=== PATIENT | female | born 2000 | race American Indian/Alaskan Native ===

== ENCOUNTER 2021-09-15 18:41 | Emergency (ER) | payer MEDICAID ==
--- NOTE | 2021-09-15 21:16 | Emergency Department Report ---
ED Fall HPI - General Chief Complaint: Back Pain/Injury Stated Complaint: BACK PAIN Source: patient Mode of arrival: Ambulatory - History of Present Illness Initial Comments: Patient is a 21-year-old -Kittitian female with no past medical history who presents to the ED with complaint of acute onset persistent severe low back pain after she is slipped on a wet ground and fell down on a concrete ground 5 days ago. Patient states the pain has been persistent and especially worse with ambulation or when she gets up in the morning. Patient states that the pain is mainly on the left lateral lumbar sacral area. Patient denies loss of consciousness, dizziness, syncope, neck pain, headache, dizziness, abdominal pain, numbness and tingling or weakness of lower extremities bilaterally. MD Complaint: fall, other (Lower back pain) -: Sudden, days(s) (5) Fall From: standing, other (slipped and fell down on a wet ground) When Fall Occurred: # days [employer] (5) Fall Witnessed: yes, by living facility s Place Fall Occurred: work Loss of Consciousness: none Prolonged Down Time?: no Symptoms Prior to Fall: none Location: back (lower), other (lower back pain) Severity: severe Severity scale (0 -10): 7 Quality: sharp, aching Context: tripped/slipped Associated Symptoms: denies. denies: headache, neck pain, numbness, weakness, chest paint, abdominal pain, hematuria, unable to walk, vertigo, confusion - Related Data Previous Rx's Medication Instructions Recorded Last Taken Type Baclofen 20 mg PO Q12H PRN #20 tablet 09/15/21 Unknown Rx Naproxen 500 mg PO Q12H PRN #30 tablet 09/15/21 Unknown Rx ED Review of Systems ROS: Stated complaint: BACK PAIN Other details as noted in HPI Constitutional: denies: chills, fever Eyes: denies: eye pain, eye discharge, vision change ENT: denies: ear pain, throat pain Respiratory: denies: cough, shortness of breath, wheezing Cardiovascular: denies: chest pain, palpitations Endocrine: no symptoms reported Gastrointestinal: denies: abdominal pain, nausea, diarrhea Genitourinary: denies: urgency, dysuria, discharge Musculoskeletal: back pain (back). denies: joint swelling, arthralgia Skin: denies: rash, lesions Neurological: denies: headache, weakness, paresthesias Psychiatric: denies: anxiety, depression Hematological/Lymphatic: denies: easy bleeding, easy bruising ED Past Medical Hx - Past Medical History Previous Medical History?: No - Surgical History Past Surgical History?: No - Medications Home Medications: Home Medications Medication Instructions Recorded Confirmed Last Taken Type Baclofen 20 mg PO Q12H PRN #20 tablet 09/15/21 Unknown Rx Naproxen 500 mg PO Q12H PRN #30 tablet 09/15/21 Unknown Rx ED Physical Exam - General Limitations: No Limitations General appearance: alert, in no apparent distress - Head Head exam: Present: atraumatic, normocephalic, normal inspection - Eye Eye exam: Present: normal appearance, PERRL Pupils: Present: normal accommodation - ENT ENT exam: Present: normal exam, normal orophraynx, mucous membranes moist, TM's normal bilaterally, normal external ear exam - Neck Neck exam: Present: normal inspection, full ROM - Respiratory Respiratory exam: Present: normal lung sounds bilaterally. Absent: respiratory distress, wheezes, rales, rhonchi, chest wall tenderness, accessory muscle use, prolonged expiratory - Cardiovascular Cardiovascular Exam: Present: regular rate, normal rhythm, normal heart sounds. Absent: systolic murmur, diastolic murmur, rubs, gallop - GI/Abdominal GI/Abdominal exam: Present: soft, normal bowel sounds. Absent: tenderness, guarding, rebound, hyperactive bowel sounds, hypoactive bowel sounds, organomegaly - Extremities Exam Extremities exam: Present: normal inspection, full ROM, normal capillary refill - Back Exam Back exam: Present: normal inspection, full ROM, tenderness (Palpable lumbosacral paraspinal musculoskeletal tenderness; no midline vertebral tenderness), muscle spasm, paraspinal tenderness. Absent: CVA tenderness (R), CVA tenderness (L), vertebral tenderness - Neurological Exam Neurological exam: Present: alert, oriented X3, CN II-XII intact, normal gait, reflexes normal - Psychiatric Psychiatric exam: Present: normal affect, normal mood - Skin Skin exam: Present: warm, dry, intact, normal color. Absent: rash ED Course Vital Signs 09/15/21 20:35 Temperature 97.6 F Pulse Rate 85 Respiratory 15 Rate Blood Pressure 121/74 [Left] O2 Sat by Pulse 100 Oximetry ED Medical Decision Making - Medical Decision Making This is a 21-year-old -Kitt[place] female with no past medical history who presents to the ED with complaint of acute onset persistent severe low back pain after she is slipped on a wet ground and fell down on a concrete ground 5 days ago. Patient states the pain has been persistent and especially worse with ambulation or when she gets up in the morning. Patient states that the pain is mainly on the left lateral lumbar sacral area. In the ED, patient is alert and oriented x3 and is not in any distress. Patient was treated for pain in the ED and based on the history and physical exam findings, patient symptoms a likely musculoskeletal injury. Patient was discharged home on pain medications and muscle relaxants and advised to follow-up with her primary care physician in 5 to 7 days for reevaluation or return to the ED immediately if symptoms get worse. - Differential Diagnosis Muscle spasm; muscle strain; back contusion; Critical care attestation.: If time is entered above; I have spent that time in minutes in the direct care of this critically ill patient, excluding procedure time. ED Disposition Clinical Impression: Spasm of muscle of lower back, Strain of muscle, fascia and tendon of lower back, initial encounter Disposition: 01 HOME / SELF CARE / HOMELESS Is pt being admited?: No Does the pt Need Aspirin: No Condition: Stable Instructions: Muscle Cramps and Spasms, [id number], Muscle Strain, Easy-to-Re ad, Low Back Sprain or Strain Rehab-SportsMed Additional Instructions: Your symptoms are likely due to a musculoskeletal injury following the fall. Therefore take medication with food, drink plenty of fluids and follow-up with your primary care physician in 7 to 10 days for reevaluation. Return to the ED immediately if symptoms get worse. Prescriptions: Baclofen 20 mg PO Q12H PRN #20 tablet PRN Reason: Muscle Spasm Naproxen 500 mg PO Q12H PRN #30 tablet PRN Reason: Severe pain Referrals: [facility] [Provider Group] - 7-10 days Forms: Work/School Release Form(ED) Time of Disposition: 21:19 Print Language: GEORGIAN
[2021-09-15 22:08] VITALS: BP 117/56
[2021-09-15] MEDS ORDERED: IBUPROFEN 600 MG TAB PO ONE (22:11)
[2021-09-15] MEDS ORDERED: ACETAMINOPHEN 500 MG TAB PO ONE (22:11)
== END 2021-09-15 22:08 | disposition home or self-care (01) ==
LOC: ED 18:41
DX: S39.012A Strain of muscle, fascia and tendon of lower back, initial encounter (principal); M62.830 Muscle spasm of back; W01.0XXA Fall on same level from slipping, tripping and stumbling without subsequent striking against object, initial encounter; Y93.89 Activity, other specified; Y92.89 Other specified places as the place of occurrence of the external cause; Y99.8 Other external cause status
CPT/HCPCS: 99282

== ENCOUNTER 2022-01-10 19:10 | Emergency (ER) | payer MEDICAID ==
[2022-01-10 19:29] VITALS: BP 118/84
[2022-01-10] MEDS ORDERED: ACETAMINOPHEN 500 MG TAB PO ONE (22:25)
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
== END 2022-01-11 00:57 | disposition home or self-care (01) ==
LOC: ED 19:10
DX: S29.011A Strain of muscle and tendon of front wall of thorax, initial encounter (principal); M62.838 Other muscle spasm; V89.2XXA Person injured in unspecified motor-vehicle accident, traffic, initial encounter; Y93.89 Activity, other specified; Y92.89 Other specified places as the place of occurrence of the external cause; Y99.8 Other external cause status
CPT/HCPCS: 70450; 72125; 99283